=== PATIENT | male | born 1960 | race Caucasian/White ===

== ENCOUNTER 2023-07-03 07:36 | Day surgery (SDC) | payer OTHER, SELFPAY ==
[2023-07-02 08:50] VITALS: BMI 39.4
[2023-07-02 09:34] LABS: % Basophils 0.9 % (0-2); % Eosinophils 3.5 % (0-6); % Immature Granulocytes 0.2 % (0-0.5); % Lymphocytes 23.3 % (20.5-51.1); % Monocytes 12.6 % (1.7-9.3); % Neutrophils 59.5 % (42.2-75.2); Absolute Eosinophils 0.2 10^3/uL (0-0.7); Absolute Lymphocytes 1.1 10^3/uL (1.2-3.4); Absolute Monocytes 0.6 10^3/uL (0.1-0.6); Absolute Neutrophils 2.7 10^3/uL (1.4-6.5); Hematocrit 38.4 % (39.0-52.0); Hemoglobin 13.1 g/dL (13.0-18.0); Mean Corp Hgb Conc. 34.1 g/dL (33.0-37.0); Mean Corpuscular Hgb 33.4 pg (27.0-31.0); Mean Platelet Volume 9.5 fL (7.4-10.4); Nucleated Red Blood Cells % 0 % (-); Platelet Count 193 10^3/uL (130-400); Red Blood Cell Count 3.92 10^6/uL (4.70-6.10); Red Cell Dist. Width 12.5 % (11.5-14.5); White Blood Cell Count 4.5 10^3/uL (4.8-10.8)
[2023-07-02 09:40] LABS: ALT (SGPT) 15 U/L (0-50); AST (SGOT) 39 U/L (17-59); Albumin 4.1 g/dl (3.5-5.0); Alkaline Phosphatase 83 U/L (38-126); Blood Urea Nitrogen 19 mg/dl (9-20); Calcium 9.3 mg/dl (8.4-10.2); Carbon Dioxide 28 mmol/L (22-30); Chloride 104 mmol/L (98-107); Estimated Creatinine Clearance > 125 ml/min; Glucose 93 mg/dl (70-99); Potassium 4.3 mmol/L (3.5-5.1); Sodium 136 mmol/L (135-145); Total Bilirubin 0.8 mg/dl (0.2-1.3); Total Protein 7.2 g/dl (6.3-8.2); eGFR > 60.00
--- NOTE | 2023-07-02 10:57 | HPS.HSE ---
Family Physician
-
Family Physician: Horacio Aguila
Chief Complaint
-
Chronic systolic heart failure. Cardiomyopathy.
History of Present Illness
The patient is a 62 year old male presenting today for chronic systolic heart failure and new onset cardiomyopathy. The patient is currently incarcerated and presents today accompanied by police officers. He has noticed progressively
worsening bilateral peripheral edema associated with his heart failure over the last several months. Because of this, he would undergo a transthoracic echocardiogram in February 2023 which would demonstrate a mildly reduced ejection fraction of
40-45% and moderate-severe tricuspid regurgitation. He was started on Furosemide, Metoprolol, and Lisinopril for pharmacological therapy. Dr. King Markham evaluated him in April 2023 and felt it would be in the patient's best interest to
undergo an ischemic evaluation not only for these diagnoses, but also due to aortic atherosclerosis and an abdominal aortic aneurysm. He will undergo a right and left cardiac catheterization at this time. He denies any current complaints today such
as chest pain, shortness of breath, palpitations, nausea, vomiting, diarrhea, lightheadedness, dizziness, cough, sore throat, or fever.
Medical History
Past Medical History
Past Medical History: Reports Other
Additional Past Medical History:
1. Chronic systolic heart failure, mildly reduced ejection fraction.
2. Cardiomyopathy.
3. Incomplete right bundle branch block.
4. Aortic atherosclerosis.
5. Abdominal aortic aneurysm, 3.0 cm.
6. Moderate-severe tricuspid regurgitation.
7. Chronic peripheral edema.
8. Right lower lobe pulmonary nodule.
9. GERD.
10. Nephrolithiasis.
11. Periumbilical hernia, non-strangulated.
12. Osteoarthritis, status post bilateral total hip arthroplasty, 1999, and right total knee arthroplasty 2006.
13. Left lower extremity cellulitis with sepsis, 08/2022, treated with Keflex.
14. Mild leukopenia.
15. Obesity, BMI 39.4.
16. History of Cannibis dependence.
Past Surgical History: Reports Other
Additional Past Surgical History:
1. Bilateral total hip arthroplasty.
2. Right total knee arthroplasty.
3. Right heel surgery.
4. Hernia repair and testicular torsion repair in childhood.
Social History
Tobacco: Non-smoker
Alcohol: None
Drug: Former User (Former daily marijuana use. He also has a past history of occasional methamphetamine use. )
Living: Penitentiary
Family History
Family History: Not pertinent
Allergies / Home Medications
Allergy/Medication List:
Home medications:
1. Acetaminophen 1000 mg p.o. twice a day.
2. Aspirin 81 mg p.o. daily.
3. Atorvastatin 40 mg p.o. at bedtime.
4. Furosemide 40 mg p.o. daily.
5. Ibuprofen 400 mg p.o. twice a day as needed.
6. Lisinopril 5 mg p.o. daily.
7. Metoprolol Succinate 25 mg p.o. daily.
8. Multivitamin 1 tablet p.o. daily.
9. Omeprazole 20 mg p.o. daily.
10. Selenium sulfide 1 application topical at bedtime.
11. Cetaphil lotion 1 application topical daily as needed.
Allergies: No known allergies.
Review of Systems
-
A 12 point ROS was completed and negative except as noted: Yes
Physical Exam
Physical Exam
General: Well Developed, Well Nourished and No Apparent Distress
HEENT: NormoCephalic, Moist mucous membranes, Atraumatic and PERRLA
Respiratory: Clear
Cardiac: Regular Rhythm
GI: Soft, Non Tender, Non Distended and Other (Obese)
Musculoskeletal: Normal Gait & Station and Other
Skin: Warm and Dry
Neuro: AO x 3 and Nonfocal/grossly intact
Laboratory Results
-
07/02/23 09:10
07/02/23 09:10
Laboratory Results
Total Bilirubin 0.8 mg/dl (0.2-1.3) 07/02/23 09:10
AST 39 U/L (17-59) 07/02/23 09:10
ALT 15 U/L (0-50) 07/02/23 09:10
Alkaline Phosphatase 83 U/L (38-126) 07/02/23 09:10
EKG 07/02/2023: Normal sinus rhythm. RSR or QR pattern in V1 suggests right ventricular conduction delay.
Impression/Plan
-
IMPRESSION/PLAN:
1. Chronic systolic heart failure and cardiomyopathy: The patient is in need of a right and left cardiac catheterization with Dr. Samy Albarran on 07/03/2023. The benefits and risks of the procedure have been explained to the patient. The patient
understands these risks and wishes to proceed. He is aware to continue his baby Aspirin up to and including the morning of his procedure.
[2023-07-03] VITALS (15 sets, daily range): BP systolic 89–126; BP diastolic 60–78; BMI 39.4
[2023-07-03] MEDS: LOW STRENGTH ASPIRIN 81 MG PO (07:46)
[2023-07-03] MEDS: NSS 352 ML IV (08:00)
[2023-07-03] MEDS: NSS 1000 IV (10:05)
--- NOTE | 2023-07-03 10:08 | ITS.CL.CATH ---
[facility] [facility] - Catheterization
Cardiac Catheterization
Procedure Report:
LEFT HEART CATHETERIZATION
Date of Procedure: July 03, 2023
Referring: Dr. King Markham
PROCEDURES:
1. Left heart catheterization with coronary and single-plane left ventriculography
INDICATION: This is a 62-year-old gentleman who is currently incarcerated at [facility]. He reportedly had an echocardiogram performed at [facility] through a mobile x-ray unit and was reported to have mildly
diminished LV systolic function estimated 40-45%. We do not have ability to access the images and review the study. He was subsequently seen by Dr. Markham and recommended to proceed directly with coronary angiography. He has experienced no
chest pain.
ACCESS: Right radial artery, 6 Welsh sheath
HEMODYNAMICS : (mmHg)
AO (s/d) : 105/73
LV (s/d) : 114/14
LVEDP : 18
CORONARY FINDINGS
DOMINANCE: Right
LEFT MAIN: Normal
LEFT ANTERIOR DESCENDING: The LAD arises normally from the left main and runs in the anterior interventricular groove. The mid LAD has a 30% stenosis possibly in an area of a myocardial bridge. The distal LAD wraps completely around the apex
supplying a portion of the inferior wall.
CIRCUMFLEX: The circumflex is a large and supplies to obtuse marginal branches. OM1 is small. OM 2 is a large terminal vessel that is widely patent
RIGHT CORONARY ARTERY: The right coronary artery is a dominant vessel that is widely patent over its course. The PDA is patent but supplies a rather small vascular territory.
VENTRICULOGRAPHY: Left ventriculography is performed in LAW projection. Digital single-plane left ventricular ejection fraction is estimated at 50-55%
RADIATION SUMMARY: Fluoro Time (min): 4.3, Dose (mGy): 394, DAP (Gy.cm2) : 27.8
Closure Device: TR band
CONCLUSIONS
1. Nonobstructive coronary disease
2. Low normal LVEF estimated 50-55%
RECOMMENDATIONS
1. May discontinue aspirin. Continue lisinopril and furosemide. Continue atorvastatin. Follow-up with Dr. Markham
Copy to: Dr. King Markham
== END 2023-07-03 13:05 | disposition home or self-care (01) ==
LOC: CATH 07:36
PROVIDERS: ATTENDING PHYSICIAN Internal Medicine Interventional Cardiology; FAMILY PHYSICIAN Family Medicine; OTHER PHYSICIAN Internal Medicine Cardiovascular Disease
DX: I25.10 Atherosclerotic heart disease of native coronary artery without angina pectoris (principal); I11.0 Hypertensive heart disease with heart failure; I50.22 Chronic systolic (congestive) heart failure; Z72.0 Tobacco use; I42.9 Cardiomyopathy, unspecified; I45.10 Unspecified right bundle-branch block; I70.0 Atherosclerosis of aorta; I71.40 Abdominal aortic aneurysm, without rupture, unspecified; I07.1 Rheumatic tricuspid insufficiency; R91.1 Solitary pulmonary nodule; R60.9 Edema, unspecified; K21.9 Gastro-esophageal reflux disease without esophagitis; N20.0 Calculus of kidney; K42.9 Umbilical hernia without obstruction or gangrene; Z96.643 Presence of artificial hip joint, bilateral; M17.11 Unilateral primary osteoarthritis, right knee; Z86.19 Personal history of other infectious and parasitic diseases; D72.819 Decreased white blood cell count, unspecified; E66.9 Obesity, unspecified; Z68.39 Body mass index [BMI] 39.0-39.9, adult; F12.21 Cannabis dependence, in remission; Z79.82 Long term (current) use of aspirin
CPT/HCPCS: 36415; 80053; 85025; 93005; 93458; C1894; Q9967

== ENCOUNTER → 2023-08-19 14:44 | Outpatient (REF) | payer OTHER, SELFPAY | LOC: RAD 14:44 | PROVIDERS: ATTENDING PHYSICIAN Nurse Practitioner; FAMILY PHYSICIAN General Practice | DX: I71.40 Abdominal aortic aneurysm, without rupture, unspecified (principal) | CPT/HCPCS: 74178; Q9967 ==